=== PATIENT | female | born 1965 | race Caucasian/White ===

== ENCOUNTER 2018-10-20 13:03 | Inpatient (IN) | payer SELFPAY ==
[2018-10-20] MEDS ORDERED: DILTIAZEM HCL INJ 25 MG/5 ML VIAL IV ONE (13:42)
[2018-10-20] MEDS ORDERED: DILTIAZEM HCL/D5W 125 MG/125 ML RTUINJ IV PRN (13:43)
[2018-10-20 14:56] LABS: ABSOLUTE EOSINOPHILS # (AUTO) 0.1 10^3/uL (0.0-0.6); ABSOLUTE LYMPHOCYTES (AUTO) 2.1 10^3/uL (0.5-4.7); ABSOLUTE MONOCYTES (AUTO) 0.7 10^3/uL (0.1-1.4); ABSOLUTE NEUT (AUTO) 4.2 10^3/uL (1.7-8.2); BASOPHILS % (AUTO) 0.4 % (0-2); EOSINOPHILS % (AUTO) 1.1 % (0-6); HEMATOCRIT 41.8 % (36.0-47.0); HEMOGLOBIN 14.3 g/dL (12.0-15.5); LYMPHOCYTES % (AUTO) 29.7 % (13-45); MEAN CORPUSCULAR HGB CONC 34.3 g/dL (32.0-36.0); MEAN CORPUSCULAR VOLUME 91 fl (80-97); MONOCYTES % (AUTO) 9.7 % (3-13); PLATELET COUNT 200 10^3/uL (150-450); RED BLOOD COUNT 4.61 10^6/uL (3.72-5.28); RED CELL DISTRIBUTION WIDTH 14.1 % (11.5-14.0); SEGMENTED NEUTROPHILS % (AUTO) 59.1 % (42-78); TOTAL CELLS COUNTED % (AUTO) 100 %; WHITE BLOOD COUNT 7.2 10^3/uL (4.0-10.5)
[2018-10-20 15:01] LABS: ALANINE AMINOTRANSFERASE 67 U/L (9-52); ALBUMIN 4.8 g/dL (3.5-5.0); ALKALINE PHOSPHATASE 71 U/L (38-126); ANION GAP 13 (5-19); ASPARTATE AMINO TRANSFERASE 42 U/L (14-36); BILIRUBIN,DIRECT 0.3 mg/dL (0.0-0.4); BILIRUBIN,TOTAL 0.4 mg/dL (0.2-1.3); BLOOD UREA NITROGEN 16 mg/dL (7-20); CALCIUM 10.2 mg/dL (8.4-10.2); CARBON DIOXIDE 23 mmol/L (22-30); CHLORIDE 104 mmol/L (98-107); CREATINE KINASE 91 U/L (30-135); GLUCOSE 161 mg/dL (75-110); POTASSIUM 4.7 mmol/L (3.6-5.0); SODIUM 139.7 mmol/L (137-145); TOTAL PROTEIN 7.3 g/dL (6.3-8.2)
[2018-10-20] MEDS ORDERED: NORMAL SALINE 1000 ML 1,000 ML IV ONE ×2 (15:01→15:50)
[2018-10-20 15:14] LABS: TROPONIN I < 0.012 ng/mL
[2018-10-20 15:49] LABS: APPEARANCE,URINE CLEAR; BILIRUBIN,URINE NEGATIVE (NEGATIVE); COLOR,URINE YELLOW; GLUCOSE, URINE 50 mg/dL (NEGATIVE); KETONES,URINE NEGATIVE (NEGATIVE); LEUKOCYTE ESTERASE,URINE NEGATIVE (NEGATIVE); NITRITE,URINE NEGATIVE (NEGATIVE); PROTEIN,URINE NEGATIVE (NEGATIVE); URINE SPECIFIC GRAVITY 1.014; UROBILINOGEN,URINE NEGATIVE mg/dL (<2.0)
--- NOTE | 2018-10-20 17:00 | EKG REPORT ---
SEVERITY:- NORMAL ECG - SINUS RHYTHM : Confirmed by: Teo Chopra 20-Oct-2018 16:59:59
--- NOTE | 2018-10-20 17:03 | EKG REPORT ---
SEVERITY:- ABNORMAL ECG - NARROW COMPLEX TACHYCARDIA BASELINE ARTIFACTS PREVENTS ACCURATE INTERPRETATION OF ATRIAL RHYTHM AND OTHER FINDINGS, REC REPEAT E KG LEFT ANTERIOR FASCICULAR BLOCK ST DEPRESSION, CONSIDER ISCHEMIA, INF LEADS : Confirmed by: Teo Chopra 20-Oct-2018 17:03:19
--- NOTE | 2018-10-20 17:12 | ER Document Report ---
Entered by MARCOS MOCTEZUMA SCRIBE 10/20/18 1440 Acting as scribe for:SARAH BILLINGS MD ED Cardiac - General Chief Complaint: Palpitations Stated Complaint: CHEST PAIN Time Seen by Provider: 10/20/18 13:33 Mode of Arrival: Ambulatory Information source: Patient, Emergency Med Personnel, Outside Facility Records Notes: 53-year-old female who presents to the emergency department today with complaints of heart palpitations, heart racing sensation, lightheadedness, d iaphoresis, and shortness of breath. Patient states last night she was awoken from sleep between 0100 and 0200 with the above-mentioned symptoms. Patient states she is not sure how long it lasted but she was able to fall back asleep. Patient states this morning at about 0730 she had woken up and eaten breakfast when the same symptoms began again. Patient went to [facility], had an EKG performed and was found to be in atrial flutter and was sent here. Patient received a total of 15 mg of Cardizem, 250 mL of normal saline, and 324 mg of aspirin by EMS. EMS reports that they felt that the patient's heart rate responded to the Cardizem however the patient states that she does not remember her heart ever feeling like it slowed down. TRAVEL OUTSIDE OF THE [place] IN LAST 30 DAYS: No - Related Data Allergies/Adverse Reactions: NSAIDS (Non-Steroidal Anti-Inflamma Allergy (Verified 10/20/18 13:34) Past Medical History - General Information source: Patient, Emergency Med Personnel, Outside Facility Records - Social History Smoking Status: Never Smoker Cigarette use (# per day): No Chew tobacco use (# tins/day): No Smoking Education Provided: No Frequency of alcohol use: None Drug Abuse: Marijuana Occupation: Property management Lives with: Family Family History: Reviewed & Not Pertinent Patient has suicidal ideation: No Patient has homicidal ideation: No - Past Medical History Cardiac Medical History: Reports: Hx Hypertension Endocrine Medical History: Reports: Hx Diabetes Mellitus Type 2 Renal/ Medical History: Reports: Hx Kidney Stones Past Surgical History: Reports: Hx Bowel Surgery - gastic bypass, Hx Hysterectomy, Hx Tonsillectomy Review of Systems - Review of Systems Constitutional: See HPI, Diaphoresis EENT: No symptoms reported Cardiovascular: See HPI, Palpitations, Heart racing, Lightheaded Respiratory: See HPI, Short of breath Gastrointestinal: No symptoms reported Genitourinary: No symptoms reported Female Genitourinary: No symptoms reported Musculoskeletal: No symptoms reported Skin: No symptoms reported Hematologic/Lymphatic: No symptoms reported Neurological/Psychological: No symptoms reported -: Yes All other systems reviewed and negative Physical Exam - Vital signs Vitals: Temp 98.6 F 10/20/18 13:03 - Notes Notes: Physical Exam: General: Alert, appears well, obese. HEENT: Normocephalic. Atraumatic. PERRL. Extraocular movements intact. Oropharynx clear. Neck: Supple. Non-tender. Respiratory: No respiratory distress. Clear and equal breath sounds bilaterally. Cardiovascular: Tachycardic, somewhat irregular, no murmurs. Abdominal: Obese. Non-tender. No distension. Normal Bowel Sounds. Back: Non-tender. No deformity or step off. Extremities: Moves all four extremities. Upper extremities: Normal inspection. Normal ROM. Lower extremities: Normal inspection. No edema. Normal ROM. Neurological: Normal cognition. AAOx4. Normal speech. Psychological: Normal affect. Normal Mood. Skin: Warm. Dry. Normal color. Course - Re-evaluation Re-evalutation: 10/20/18 15:29 Patient had a 20 mg bolus Cardizem, then Cardizem drip which was increased to 15 mg/h. She continued to have a heart rate of 150, normal saline bolus was started and soon after that she converted to normal sinus rhythm with a heart rate in 80s. A repeat EKG shows a normal sinus rhythm at a rate of 84 with no abnormalities noted. - Vital Signs Vital signs: Temp Pulse Resp BP Pulse Ox 98.6 F 15 115/74 97 10/20/18 13:22 10/20/18 16:45 10/20/18 16:45 10/20/18 16:45 - Laboratory Result Diagrams: 10/20/18 13:10 10/20/18 13:10 Laboratory results interpreted by me: 10/20/18 10/20/18 10/20/18 13:10 13:10 15:21 RDW 14.1 H Glucose 161 H AST 42 H ALT 67 H Urine Glucose (UA) 50 H - EKG Interpretation by Ga EKG shows normal: [place], Intervals, QRS Complexes, ST-T Waves Rate: Tachycardia - 149 Rhythm: A.Flutter [place]/QRS: LAHB/LAFB When compared to previous EKG there are: Previous EKG unavailable Additional EKG results interpreted by me: 10/20/18 17:10 A repeat EKG was done after the patient converted to normal sinus rhythm. The second EKG shows a normal EKG with a NSR, rate is 84. - Consults Dr. Banuelos Time consulted: 17:00 Consulted provider: will come to ER Critical Care Note - Critical Care Note Total time excluding time spent on procedures (mins): 30 Discharge - Discharge Clinical Impression: Atrial flutter with rapid ventricular response Condition: Stable Disposition: ADMITTED INPATIENT Admitting Provider: Hospitalist Unit Admitted: DEN Scribe Attestation: 10/20/18 15:30 I personally performed the services described in the documentation, reviewed and edited the documentation which was dictated to the scribe in my presence, and it accurately records my words and actions. I personally performed the services described in the documentation, reviewed and edited the documentation which was dictated to the scribe in my presence, and it accurately records my words and actions.
--- NOTE | 2018-10-20 17:40 | RADIOLOGY REPORT (SQ) ---
EXAM DESCRIPTION: CHEST SINGLE VIEW COMPLETED DATE/TIME: 10/20/2018 5:33 pm REASON FOR STUDY: New onset atrial flutter with RVR COMPARISON: None. EXAM PARAMETERS: NUMBER OF VIEWS: One view. TECHNIQUE: Single frontal radiographic view of the chest acquired. RADIATION DOSE: NA LIMITATIONS: None. FINDINGS: LUNGS AND PLEURA: No opacities, masses or pneumothorax. No pleural effusion. MEDIASTINUM AND HILAR STRUCTURES: No masses. Contour normal. HEART AND VASCULAR STRUCTURES: Heart normal in size. Normal vasculature. BONES: No acute findings. HARDWARE: None in the chest. OTHER: No other significant finding. IMPRESSION: NO ACUTE RADIOGRAPHIC FINDING IN THE CHEST. TECHNICAL DOCUMENTATION: JOB ID: [id number] [employer]- All Rights Reserved Reading location - IP/workstation name: [email or web address]
[2018-10-20] MEDS ORDERED: ONDANSETRON HCL INJ/PF 4 MG/2 ML SDV IV PRN (17:57)
[2018-10-20] MEDS ORDERED: TEMAZEPAM 7.5 MG CAPSULE PO PRN (17:57)
[2018-10-20] MEDS ORDERED: OXYCODONE-ACETAMINOPHEN 5-325 MG TABLET PO PRN (17:57)
[2018-10-20] MEDS ORDERED: ACETAMINOPHEN 325 MG TABLET PO PRN (17:57)
[2018-10-20] MEDS ORDERED: DEXTROSE 50%-WATER 25 GM/50 ML DISP.SYRIN IV PRN ×2 (18:03)
[2018-10-20] MEDS ORDERED: GLUCAGON,HUMAN RECOMB 1 MG INJ IM PRN (18:03)
[2018-10-20] MEDS ORDERED: DEXTROSE 40% GEL 15 GM TUBE PO PRN ×2 (18:03)
[2018-10-20 20:01] LABS: CREATINE KINASE MB 0.65 ng/mL (<4.55)
[2018-10-20 20:02] LABS: TROPONIN I < 0.012 ng/mL
[2018-10-20] MEDS: FAMOTIDINE 20 MG TABLET PO SCH (21:20)
[2018-10-20] MEDS: DILTIAZEM HCL 60 MG TABLET PO SCH (21:20)
[2018-10-20] MEDS ORDERED: ATORVASTATIN CALCIUM 40 MG TABLET PO SCH (22:00)
[2018-10-20] MEDS: INSULIN REG, HUMAN 100 UNIT/ML 3 ML VIAL (PYX) SUBCUT SCH (23:16)
[2018-10-21 03:11] LABS: CREATINE KINASE MB 0.46 ng/mL (<4.55)
[2018-10-21 03:18] LABS: TROPONIN I < 0.012 ng/mL
[2018-10-21] MEDS: DILTIAZEM HCL 60 MG TABLET PO SCH (05:21)
[2018-10-21] MEDS: INSULIN REG, HUMAN 100 UNIT/ML 3 ML VIAL (PYX) SUBCUT SCH ×2 (08:05→11:52)
[2018-10-21 08:26] LABS: ABSOLUTE EOSINOPHILS # (AUTO) 0.1 10^3/uL (0.0-0.6); ABSOLUTE LYMPHOCYTES (AUTO) 1.4 10^3/uL (0.5-4.7); ABSOLUTE MONOCYTES (AUTO) 0.3 10^3/uL (0.1-1.4); ABSOLUTE NEUT (AUTO) 1.9 10^3/uL (1.7-8.2); BASOPHILS % (AUTO) 0.4 % (0-2); EOSINOPHILS % (AUTO) 2.7 % (0-6); HEMATOCRIT 36.2 % (36.0-47.0); HEMOGLOBIN 12.5 g/dL (12.0-15.5); LYMPHOCYTES % (AUTO) 37.4 % (13-45); MEAN CORPUSCULAR HEMOGLOBIN 31.4 pg (27.0-33.4); MEAN CORPUSCULAR HGB CONC 34.5 g/dL (32.0-36.0); MEAN CORPUSCULAR VOLUME 91 fl (80-97); MONOCYTES % (AUTO) 7.8 % (3-13); PLATELET COUNT 156 10^3/uL (150-450); RED BLOOD COUNT 3.97 10^6/uL (3.72-5.28); RED CELL DISTRIBUTION WIDTH 14.3 % (11.5-14.0); SEGMENTED NEUTROPHILS % (AUTO) 51.7 % (42-78); TOTAL CELLS COUNTED % (AUTO) 100 %; WHITE BLOOD COUNT 3.7 10^3/uL (4.0-10.5)
--- NOTE | 2018-10-21 08:46 | PDOC H&P ---
History of Present Illness Admission Date/PCP: 10/20/18 17:31 Patient complains of: Palpitations History of Present Illness: JAMAR CHAVARRIA is a 53 year old female 33-year-old female with history of diabetes mellitus hypertension obesity, gastric bypass came to the emergency room with complaints of palpitations and chest tightness from last night. She woke up around 1:00 this morning with profuse sweating and palpitations she thought it was due to menopausal symptoms and went back to bed woke up this morning with recurrence of the symptoms pumping in the chair stand tightness in the chest associated with lightheadedness so dizzy she decided to come to the emergency room for further evaluation on the way to the ER EMS gave IV Cardizem 20 mg 1 dose followed by 10 mg but no EKG copy was given to the ER physician in the emergency room patient was given 20 mg of IV Cardizem and started on Cardizem drip she converted to sinus rhythm with heart rate in the 80s. medical consult was called for admission and further management. Past Medical History Cardiac Medical History: Reports: Hypertension Endocrine Medical History: Reports: Diabetes Mellitus Type 2 Past Surgical History Past Surgical History: Reports: Hysterectomy, Tonsillectomy, Other - Gastric bypass Social History Lives with: Family Smoking Status: Never Smoker - Advance Directive Resuscitation Status: Full Code Family History Family History: Reviewed & Not Pertinent Parental Family History Reviewed: Yes - Mother with atrial fibrillation family history of diabetes mellitus Children Family History Reviewed: Yes Sibling(s) Family History Reviewed.: Yes Medication/Allergy Allergies/Adverse Reactions: NSAIDS (Non-Steroidal Anti-Inflamma Allergy (Verified 10/20/18 13:34) Review of Systems Constitutional: PRESENT: headache(s), weakness. ABSENT: fever(s) Eyes: ABSENT: visual disturbances Ears: ABSENT: hearing changes Nose, Mouth, and Throat: ABSENT: sore throat Cardiovascular: PRESENT: palpitations. ABSENT: dyspnea on exertion, orthropnea Respiratory: PRESENT: dyspnea Gastrointestinal: ABSENT: coffee ground emesis, diarrhea, dysphagia, hematemesis, melena, nausea, vomiting Genitourinary: ABSENT: dysuria Neurological: PRESENT: dizziness, weakness. ABSENT: focal weakness Physical Exam Vital Signs: Temp Pulse Resp BP Pulse Ox 98.6 F 15 115/74 97 10/20/18 13:22 10/20/18 16:45 10/20/18 16:45 10/20/18 16:45 Intake & Output 10/19/18 10/20/18 10/21/18 06:59 06:59 06:59 Intake Total 1004 Balance 1004 Weight 100.8 kg General appearance: PRESENT: no acute distress Head exam: PRESENT: atraumatic Eye exam: PRESENT: PERRLA Neck exam: ABSENT: carotid bruit, JVD, lymphadenopathy, thyromegaly Respiratory exam: PRESENT: clear to auscultation hanna. ABSENT: rales, rhonchi, wheezes Cardiovascular exam: PRESENT: systolic murmur GI/Abdominal exam: PRESENT: normal bowel sounds, soft. ABSENT: distended, guarding, mass, organolmegaly, rebound, tenderness Extremities exam: PRESENT: full ROM. ABSENT: calf tenderness, clubbing, pedal edema Neurological exam: PRESENT: alert, awake, oriented to person, oriented to place, oriented to time, oriented to situation, CN II-XII grossly intact. ABSENT: motor sensory deficit Psychiatric exam: PRESENT: appropriate affect, normal mood. ABSENT: homicidal ideation, suicidal ideation Results Laboratory Results: 10/20/18 13:10 10/20/18 13:10 10/20/18 10/20/18 10/20/18 13:10 13:10 13:10 WBC 7.2 RBC 4.61 Hgb 14.3 Hct 41.8 MCV 91 MCH 31.0 MCHC 34.3 RDW 14.1 H Plt Count 200 Seg Neutrophils % 59.1 Lymphocytes % 29.7 Monocytes % 9.7 Eosinophils % 1.1 Basophils % 0.4 Absolute Neutrophils 4.2 Absolute Lymphocytes 2.1 Absolute Monocytes 0.7 Absolute Eosinophils 0.1 Absolute Basophils 0.0 Sodium 139.7 Potassium 4.7 Chloride 104 Carbon Dioxide 23 Anion Gap 13 BUN 16 Creatinine 0.82 Est GFR ( Amer) > 60 Est GFR (Non-Af Amer) > 60 Glucose 161 H Calcium 10.2 Magnesium 1.9 Total Bilirubin 0.4 AST 42 H ALT 67 H Alkaline Phosphatase 71 Total Protein 7.3 Albumin 4.8 TSH 1.59 Urine Color Urine Appearance Urine pH Ur Specific [place] Urine Protein Urine Glucose (UA) Urine Ketones Urine Blood Urine Nitrite Ur Leukocyte Esterase Urine WBC (Auto) Urine RBC (Auto) 10/20/18 15:21 WBC RBC Hgb Hct MCV MCH MCHC RDW Plt Count Seg Neutrophils % Lymphocytes % Monocytes % Eosinophils % Basophils % Absolute Neutrophils Absolute Lymphocytes Absolute Monocytes Absolute Eosinophils Absolute Basophils Sodium Potassium Chloride Carbon Dioxide Anion Gap BUN Creatinine Est GFR ( Amer) Est GFR (Non-Af Amer) Glucose Calcium Magnesium Total Bilirubin AST ALT Alkaline Phosphatase Total Protein Albumin TSH Urine Color YELLOW Urine Appearance CLEAR Urine pH 5.0 Ur Specific [place] 1.014 Urine Protein NEGATIVE Urine Glucose (UA) 50 H Urine Ketones NEGATIVE Urine Blood NEGATIVE Urine Nitrite NEGATIVE Ur Leukocyte Esterase NEGATIVE Urine WBC (Auto) 1 Urine RBC (Auto) 0 10/20/18 10/20/18 13:10 13:10 Creatine Kinase 91 CK-MB (CK-2) 1.00 Troponin I < 0.012 Impressions: Chest X-Ray 10/20/18 17:08 IMPRESSION: NO ACUTE RADIOGRAPHIC FINDING IN THE CHEST. Assessment and Plan - Diagnosis (1) Atrial fibrillation with RVR Is this a current diagnosis for this admission?: Yes Plan: 10/20/18 18:09 10/20/2018 patient is going to be admitted to [facility]. Dietary consult was requested. To start on p.o. Cardizem 60 mg 3 times daily. Cardiac enzymes x3 are requested. GI prophylaxis was provided. ECHO will be requested after consultation with Dr. Armstrong. Started on aspirin, atorvastatin. (2) Diabetes Is this a current diagnosis for this admission?: No Plan: 10/20/18 18:11 Patient has history of type 2 diabetes mellitus plan to check hemoglobin A1c tomorrow. Started on insulin sliding scale before meals and at bedtime patient is taking metformin at home which was on hold for now. Diet exercise weight loss lifestyle modifications complex medication was advised (3) HTN (hypertension) Is this a current diagnosis for this admission?: No Plan: 10/20/18 18:12 10/20/2018-patient is given the history of hypertension she is on hydrochlorothiazide unknown dose lisinopril 20 mg p.o. daily at home plan is to resume lisinopril from tonight. Pressure today is 133/76 stable. to Check the blood pressures every shift. (4) Obesity (BMI 30-39.9) Is this a current diagnosis for this admission?: No Plan: 10/20/18 18:13 10/20/2018-patient has history of obesity status post gastric bypass BMI is more than 30 diet exercise weight loss lifestyle modifications are discussed with the patient. Dietary consult was requested.
[2018-10-21 08:55] LABS: ALANINE AMINOTRANSFERASE 53 U/L (9-52); ALKALINE PHOSPHATASE 61 U/L (38-126); ANION GAP 8 (5-19); ASPARTATE AMINO TRANSFERASE 34 U/L (14-36); BILIRUBIN,DIRECT 0.2 mg/dL (0.0-0.4); BILIRUBIN,TOTAL 0.7 mg/dL (0.2-1.3); BLOOD UREA NITROGEN 12 mg/dL (7-20); CALCIUM 9.5 mg/dL (8.4-10.2); CARBON DIOXIDE 27 mmol/L (22-30); CHLORIDE 102 mmol/L (98-107); CHOLESTEROL 196.37 mg/dL (0-200); GLUCOSE 240 mg/dL (75-110); POTASSIUM 4.6 mmol/L (3.6-5.0); SODIUM 137.1 mmol/L (137-145); TOTAL PROTEIN 6.5 g/dL (6.3-8.2); TRIGLYCERIDES 299 mg/dL (<150)
[2018-10-21 09:14] LABS: CREATINE KINASE MB 0.41 ng/mL (<4.55); NT PRO BNP 279 pg/mL (5-900)
[2018-10-21 09:15] LABS: DIRECT LDL 125 mg/dL (<100); TROPONIN I < 0.012 ng/mL
[2018-10-21 09:16] LABS: VLDL CHOLESTEROL 59.8 mg/dL (10-31)
[2018-10-21] MEDS: FAMOTIDINE 20 MG TABLET PO SCH (09:59)
[2018-10-21] MEDS ORDERED: LISINOPRIL 10 MG TABLET PO SCH (10:00)
[2018-10-21] MEDS ORDERED: APIXABAN 5 MG TABLET PO SCH (10:00)
[2018-10-21] MEDS ORDERED: ENOXAPARIN SODIUM INJ 40 MG/0.4 ML DISP.SYRIN SUBCUT SCH (10:00)
[2018-10-21] MEDS ORDERED: DOCUSATE SODIUM 100 MG CAPSULE PO SCH (10:00)
[2018-10-21] MEDS ORDERED: ASPIRIN 325 MG TABLET PO SCH (10:00)
[2018-10-21 12:32] VITALS: BP 116/79
--- NOTE | 2018-10-21 13:34 | PDOC DISCHARGE SUMMARY ---
General - Admit/Disc Date/PCP Admission Date/Primary Care Provider: 10/20/18 17:31 Discharge Date: 10/21/18 - Discharge Diagnosis (1) Atrial fibrillation with RVR Is this a current diagnosis for this admission?: Yes Summary: 10/20/18 18:09 10/20/2018 patient is going to be admitted to [facility]. Dietary consult was requested. To start on p.o. Cardizem 60 mg 3 times daily. Cardiac enzymes x3 are requested. GI prophylaxis was provided. ECHO will be requested after consultation with Dr. Armstrong. Started on aspirin, atorvastatin. 09/23/2018 patient was admitted for new onset atrial fibrillation on the way to the emergency room she received 2 doses of Cardizem IV 10 mg and 5 mg in the ER she received 20 mg of IV bolus Cardizem started on Cardizem drip by the time went to see the patient she converted to sinus rhythm patient was started on Eliquis after discussion with Dr. Armstrong. No complications during the hospital stay. Eliquis prescription for 5 mg p.o. twice daily given to the patient. she was strongly advised to follow-up with Dr. Armstrong in 1 week time. (2) Diabetes Is this a current diagnosis for this admission?: No Summary: 10/20/18 18:11 Patient has history of type 2 diabetes mellitus plan to check hemoglobin A1c tomorrow. Started on insulin sliding scale before meals and at bedtime patient is taking metformin at home which was on hold for now. Diet exercise weight loss lifestyle modifications complex medication was advised 10/21/2018-patient has a type 2 diabetes mellitus history she is on metformin at home which was on hold during this hospital stay presently she is on insulin sliding scale latest blood sugar is 220. Patient advised to restart her Glucophage upon discharge. Dietary consult was requested during the hospital stay. (3) HTN (hypertension) Is this a current diagnosis for this admission?: No Summary: 10/20/18 18:12 10/20/2018-patient is given the history of hypertension she is on hydrochlorothiazide unknown dose lisinopril 20 mg p.o. daily at home plan is to resume lisinopril from tonight. Pressure today is 133/76 stable. to Check the blood pressures every shift. 10/21/2018-patient has history of hypertension she is on lisinopril 20 mg daily, hydrochlorothiazide at home blood pressure today is 122/74 patient is advised to resume the medications at home. (4) Obesity (BMI 30-39.9) Is this a current diagnosis for this admission?: No - Additional Information Resuscitation Status: Full Code Discharge Activity: Activity As Tolerated Prescriptions: Apixaban [Eliquis 5 mg Tablet] 5 mg PO BID #60 tablet Atorvastatin Calcium [Lipitor 40 mg Tablet] 40 mg PO QHS #30 tablet Home Medications: Cholecalciferol (Vitamin D3) [Vitamin D3 5000 unit Capsule] 5,000 unit PO DAILY 10/20/18 Lisinopril/Hydrochlorothiazide [Lisinopril-Hctz 20-12.5 mg Tab] 1 tab PO DAILY 10/20/18 Metformin HCl [Glucophage] 1,000 mg PO Q12 10/20/18 Multivitamin/Iron/Folic Acid [Centrum Adults Tablet] 1 tab PO DAILY 10/20/18 Apixaban [Eliquis 5 mg Tablet] 5 mg PO BID #60 tablet 10/21/18 Atorvastatin Calcium [Lipitor 40 mg Tablet] 40 mg PO QHS #30 tablet 10/21/18 History of Present Illness History of Present Illness: JAMAR CHAVARRIA is a 53 year old female 33-year-old female with history of diabetes mellitus hypertension obesity, gastric bypass came to the emergency room with complaints of palpitations and chest tightness from last night. She woke up around 1:00 this morning with pro fuse sweating and palpitations she thought it was due to menopausal symptoms and went back to bed woke up this morning with recurrence of the symptoms pumping in the chair stand tightness in the chest associated with lightheadedness so dizzy she decided to come to the emergency room for further evaluation on the way to the ER EMS gave IV Cardizem 20 mg 1 dose followed by 10 mg but no EKG copy was given to the ER physician in the emergency room patient was given 20 mg of IV Cardizem and started on Cardizem drip she converted to sinus rhythm with heart rate in the 80s. medical consult was called for admission and further management. Physical Exam Vital Signs: Temp Pulse Resp BP Pulse Ox 98.3 F 66 16 116/79 97 10/21/18 12:30 10/21/18 12:30 10/21/18 12:30 10/21/18 12:30 10/21/18 12:30 Intake & Output 10/20/18 10/21/18 10/22/18 06:59 06:59 06:59 Intake Total 2096 Output Total 200 Balance 1896 Weight 105.9 kg General appearance: PRESENT: no acute distress, obese Head exam: PRESENT: atraumatic Eye exam: PRESENT: PERRLA Mouth exam: PRESENT: moist, tongue midline Neck exam: ABSENT: carotid bruit, JVD, lymphadenopathy, thyromegaly Respiratory exam: PRESENT: clear to auscultation hanna. ABSENT: rales, rhonchi, wheezes Cardiovascular exam: PRESENT: RRR. ABSENT: diastolic murmur, rubs, systolic mu rmur GI/Abdominal exam: PRESENT: normal bowel sounds, soft. ABSENT: distended, guarding, mass, organolmegaly, rebound, tenderness Extremities exam: PRESENT: full ROM. ABSENT: calf tenderness, clubbing, pedal edema Neurological exam: PRESENT: alert, awake, oriented to person, oriented to place, oriented to time, oriented to situation, CN II-XII grossly intact. ABSENT: motor sensory deficit Psychiatric exam: PRESENT: appropriate affect, normal mood. ABSENT: homicidal ideation, suicidal ideation Results Laboratory Results: 10/21/18 07:59 10/21/18 07:59 10/20/18 10/20/18 10/20/18 13:10 13:10 13:10 WBC 7.2 RBC 4.61 Hgb 14.3 Hct 41.8 MCV 91 MCH 31.0 MCHC 34.3 RDW 14.1 H Plt Count 200 Seg Neutrophils % 59.1 Lymphocytes % 29.7 Monocytes % 9.7 Eosinophils % 1.1 Basophils % 0.4 Absolute Neutrophils 4.2 Absolute Lymphocytes 2.1 Absolute Monocytes 0.7 Absolute Eosinophils 0.1 Absolute Basophils 0.0 Sodium 139.7 Potassium 4.7 Chloride 104 Carbon Dioxide 23 Anion Gap 13 BUN 16 Creatinine 0.82 Est GFR ( Amer) > 60 Est GFR (Non-Af Amer) > 60 Glucose 161 H Calcium 10.2 Magnesium 1.9 Total Bilirubin 0.4 AST 42 H ALT 67 H Alkaline Phosphatase 71 Total Protein 7.3 Albumin 4.8 Triglycerides Cholesterol LDL Cholesterol Direct VLDL Cholesterol HDL Cholesterol TSH 1.59 Urine Color Urine Appearance Urine pH Ur Specific [place] Urine Protein Urine Glucose (UA) Urine Ketones Urine Blood Urine Nitrite Ur Leukocyte Esterase Urine WBC (Auto) Urine RBC (Auto) 10/20/18 10/21/18 10/21/18 15:21 07:59 07:59 WBC 3.7 L RBC 3.97 Hgb 12.5 Hct 36.2 MCV 91 MCH 31.4 MCHC 34.5 RDW 14.3 H Plt Count 156 Seg Neutrophils % 51.7 Lymphocytes % 37.4 Monocytes % 7.8 Eosinophils % 2.7 Basophils % 0.4 Absolute Neutrophils 1.9 Absolute Lymphocytes 1.4 Absolute Monocytes 0.3 Absolute Eosinophils 0.1 Absolute Basophils 0.0 Sodium 137.1 Potassium 4.6 Chloride 102 Carbon Dioxide 27 Anion Gap 8 BUN 12 Creatinine 0.58 Est GFR ( Amer) > 60 Est GFR (Non-Af Amer) > 60 Glucose 240 H Calcium 9.5 Magnesium 1.7 Total Bilirubin 0.7 AST 34 ALT 53 H Alkaline Phosphatase 61 Total Protein 6.5 Albumin 4.0 Triglycerides 299 H Cholesterol 196.37 LDL Cholesterol Direct 125 H VLDL Cholesterol 59.8 H HDL Cholesterol 54 TSH Urine Color YELLOW Urine Appearance CLEAR Urine pH 5.0 Ur Specific [place] 1.014 Urine Protein NEGATIVE Urine Glucose (UA) 50 H Urine Ketones NEGATIVE Urine Blood NEGATIVE Urine Nitrite NEGATIVE Ur Leukocyte Esterase NEGATIVE Urine WBC (Auto) 1 Urine RBC (Auto) 0 10/21/18 07:59 WBC RBC Hgb Hct MCV MCH MCHC RDW Plt Count Seg Neutrophils % Lymphocytes % Monocytes % Eosinophils % Basophils % Absolute Neutrophils Absolute Lymphocytes Absolute Monocytes Absolute Eosinophils Absolute Basophils Sodium Potassium Chloride Carbon Dioxide Anion Gap BUN Creatinine Est GFR ( Amer) Est GFR (Non-Af Amer) Glucose Calcium Magnesium Total Bilirubin AST ALT Alkaline Phosphatase Total Protein Albumin Triglycerides Cholesterol LDL Cholesterol Direct VLDL Cholesterol HDL Cholesterol TSH 2.56 Urine Color Urine Appearance Urine pH Ur Specific [place] Urine Protein Urine Glucose (UA) Urine Ketones Urine Blood Urine Nitrite Ur Leukocyte Esterase Urine WBC (Auto) Urine RBC (Auto) 10/20/18 10/20/18 10/20/18 13:10 13:10 19:20 Creatine Kinase 91 CK-MB (CK-2) 1.00 0.65 Troponin I < 0.012 < 0.012 NT-Pro-B Natriuret Pep 10/21/18 10/21/18 01:21 07:59 Creatine Kinase CK-MB (CK-2) 0.46 0.41 Troponin I < 0.012 < 0.012 NT-Pro-B Natriuret Pep 279 Impressions: Chest X-Ray 10/20/18 17:08 IMPRESSION: NO ACUTE RADIOGRAPHIC FINDING IN THE CHEST. Qualifiers - * PATIENT BEING DISCHARGED WITH ANY OF THE FOLLOWING DIAGNOSIS: No VTE patient discharged on overlapping Therapy?: No
--- NOTE | 2018-10-21 23:25 | EKG REPORT ---
SEVERITY:- OTHERWISE NORMAL ECG - SINUS RHYTHM BORDERLINE LEFT AXIS DEVIATION : Confirmed by: Teo Chopra 21-Oct-2018 23:24:09
== END 2018-10-21 13:41 | disposition home or self-care (01) | DRG 310 ==
LOC: ER 13:03 → EH 17:31 → 3S 22:03
PROVIDERS: ADMIT Internal Medicine; ATTEND Internal Medicine
DX: I48.91 Unspecified atrial fibrillation (principal); I10 Essential (primary) hypertension; E11.8 Type 2 diabetes mellitus with unspecified complications; Z98.84 Bariatric surgery status
CPT/HCPCS: 36415; 71045; 80053; 80061; 81001; 82550; 82553; 82962; 83735; 83880; 84443; 84484; 85025; 93005; 93010; 96365; 96366; 99291; J1815; J3490; J7030